=== PATIENT | male | born 1950 | race Caucasian/White ===

== ENCOUNTER 2016-06-19 16:16 | Emergency (ER) | payer OTHER ==
[~2016-06-19 16:16] MED LIST: ATORVASTATIN CA10 MG PO; BUSPIRONE HCL5 MG PO; CLONAZEPAM0.5 MG PO; CYCLOBENZAPRINE5 MG PO; LISINOPRIL10 MG PO; NITROSTAT0.4 MG SL; VICODIN EQUIVAL1 TAB PO; ZESTRIL2.5 MG PO
--- NOTE | 2016-06-19 17:26 | DIAGNOSTIC IMAGING REPORT ---
PROCEDURE: XR CHEST 1 VIEW INDICATION: CHEST PAIN TECHNIQUE: Portable AP view 04:51 p.m. COMPARISON: Chest 06/05/2016 FINDINGS: Lungs are clear. Heart and mediastinum are normal. Thorax is normal. IMPRESSION: 1. Negative chest.
--- NOTE | 2016-06-19 20:16 | ED ORDER SUMMARY ---
..... Patient: HOMA HEATH OrderSheet [facility] VisitID: [id number] [place] [address] 66y, M Registration Date/Time: 06/19/2016 ORDER SHEET Weight: 71.6 kg (stated) Allergies: No Known Drug Allergy GENERAL ORDERS: Urologist Md (Continuous) (Chest Pain) (16:46 06/19/2016 Alta R.N. verbal order read back to Marii POWELL) (16:49 Alta R.N.) CBC w Diff Urgent (16:47 06/19/2016 Alta R.N. verbal order read back to Marii POWELL) (16:50 Alta R.N.) (Cancelled: Duplicate Order17:01 Marii POWELL) CMP Urgent (16:47 06/19/2016 Alta R.N. verbal order read back to Marii POWELL) (16:50 Sesarelli R.N.) (Cancelled: Duplicate Order17:01 Marii POWELL) UA-Culture if indicated Urgent (16:47 06/19/2016 Alta R.N. verbal order read back to Marii POWELL) (Ack 17:02 NHouse ER Tech1) (17:47 SReitz R.N.) Oxygen (2 L/min) (NC) (16:47 06/19/2016 Alta R.N. verbal order read back to Marii POWELL) (16:49 Alta R.N.) Pulse oximeter (16:47 06/19/2016 Alta R.N. verbal order read back to Marii POWELL) (16:49 Alta R.N.) EKG - ER Stat (16:47 06/19/2016 Alta Moe.N. verbal order read back to Marii POWELL) (16:47 LNations ER Tech1) Old Records (16:47 06/19/2016 Alta Moe.N. verbal order read back to Marii POWELL) (17:02 NHouse ER Tech1) Chest 1V Urgent (16:47 06/19/2016 Alta R.N. verbal order read back to Marii POWELL) (Ack 17:02 NHouse ER Tech1) (17:03 NHouse ER Tech1) Cardiac Panel Stat (16:50 06/19/2016 Alta Self verbal order read back to Marii POWELL) (Ack 17:02 NHouse ER Tech1) (17:03 NHouse ER Tech1) TSH Urgent (17:17 06/19/2016 Marii POWELL) (17:29 NHouse ER Tech1) - (orthostatic BP/P) (19:02 06/19/2016 Marii POWELL) (19:29 Bryant R.N.) -- (Walk test after orthostatics.) (19:02 06/19/2016 Marii POWELL) (19:29 Bryant Moe.N.) MEDICATION ORDERS: IV FLUIDS: IV NS : initial bolus none -, then 125 mL/hr (NOW) (16:46 06/19/2016 Alta Self verbal order read back to Marii POWELL) (16:49 Alta R.N.) Toradol IV 30 mg (NOW) (17:01 06/19/2016 Marii POWELL) (Ack 17:05 Bryant R.N.) (17:11 Bryant R.N.) ORDER SHEET NOTES: [Electronically signed by Carline Hartley R.N. (21:00 06/19/2016)] [Electronically signed by Mohsen Friedman MD (22:18 06/20/2016)] [Electronically locked/signed by Carline Hartley R.N. (21:00 06/19/2016)]
--- NOTE | 2016-06-19 20:16 | ED NURSING NOTES ---
Clinical Report - Nurses [facility] [address] [place] [address] 06/19/2016 16:16 Patient: HOMA HEATH TRIAGE Triage time 16:22. Acuity: LEVEL 3. Chief Complaint: CHEST PAIN and (headache and dizziness). Alert. No acute distress. 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 He then started having chest pain 10/10. He also is complaining of left shoulder pain: Which he recently injured. He took a nitro and called EMS. His pain after nitro was 7/10.). SEPSIS SCREEN: Sepsis Screen. Negative (no infection suspected/documented). YENNY COMA SCORE: [place] Coma Scale: 15- eyes open spontaneously (4); best verbal response- oriented x 4 (5); best motor response- obeys commands (6). --16:36 Elba Rudd R.N. 16:22 06/19/16. BP: 136/80. HR: 60. RR: 18. O2 saturation: 96%. Temp: 98.6 F. Pain level now 7/10. --16:36 Elba Rudd R.N. Weight: 71.6 kg stated. Height/Length: 65 inches Per Patient. BMI: 26.3. --16:29 Elba Rudd R.N. Medications Lisinopril Oral 40 mg (pt states he has not taken any for x1 week). --16:26 Elba Rudd R.N. ClonazePAM Oral (Tablet 1 mg) 1 tablet, as needed. Vicodin Oral. --16:26 Elba Rudd R.N. Mirtazapine Oral 45 mg, at bedtime. --17:35 Elba Rudd R.N. Atorvastatin Calcium Oral 20 mg, daily. --17:35 Elba Rudd R.N. TraZODone HCl Oral 100 mg, at bedtime. --17:36 Elba Rudd R.N. Citalopram 0.5mg x1 tablet three time daily. --17:36 Elba Rudd R.N. TiZANidine HCl Oral (Tablet 2 mg) 1 tablet, 3x a day. --17:37 Elba Rudd R.N. Spironolactone Oral (Tablet 25 mg) 1 tablet, daily. --17:41 Elba Rudd R.N. Nitroglycerin Translingual, as needed. --17:41 Elba Rudd R.N. The following entry was struck and corrected by Elba Rudd R.N., 17:35 (06/19/16) Reason for correction - other(correction). <<STRICKEN ENTRY-- Lisinopril Oral. --16:26 Elba Rudd R.N. --END STRIKE>>. Allergies No Known Drug Allergy. --16:26 Elba Rudd R.N. History Arrived by EMS. Historian: patient. Unaccompanied. Primary physician ([facility] in [place]). This started today. 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 NS fluids: 50cc INTELLIGENCE CHIEF to ED.). See EMS report. Pre-hospital 12-lead EKG. Medications given- ASA (IV ASA 324mg. Pt. took x1 Nitro prior to EMS arrival.). PAST MEDICAL HX: Immunizations: up-to-date. SOCIAL HX: Never smoker. Alcohol use. (stopped drinking in 1983). History of drug use: marijuana. (history). No infectious disease exposure. ABUSE ASSESSMENT: No report of abuse. NUTRITIONAL RISK ASSESSMENT: The nutritional risk assessment revealed no deficiencies. FUNCTIONAL ASSESSMENT: Functional assessment: no impairments noted. LEARNING NEEDS ASSESSMENT: The learning needs assessment revealed no barriers. --16:36 Elba Rudd R.N. PROBLEMS: Chest Pain. Abrasion(s). Suicidal Ideation. Sinus bradycardia. Seizure. Dizziness. Hypokalemia. Fall. Hypertension. Depression. Diabetes Mellitus. Anxiety disorder. --16:26 Elba Rudd R.N. Hemiplegia. CVA - Cerebrovascular Accident. --16:28 Elba Rudd R.N. ADDITIONAL SURGERIES: Cerebral aneurysm. Cholecystectomy. --16:26 Elba Rudd R.N. Interventions ID band on patient. Transported via stretcher. --16:36 Elba Rudd R.N. 16:31 06/19/2016 Site #1 started prior to arrival by EMS via IV in the right hand with an 20g angiocath. --16:31 Elba Rudd R.N. PHYSICAL ASSESSMENT 16:23. To room via stretcher. GENERAL / NEURO / PSYCH: Alert. Appears in no acute distress. HEENT: Mucous membranes are pink. RESPIRATORY: Respirations not labored. CVS: Pulses within normal limits. Capillary refill less than 2 seconds. EXTREMITIES: No lower extremity edema. SKIN: Skin is warm and dry. Skin is non-tender. --16:36 Elba Rudd R.N. NURSING PROGRESS NOTES 16:24. Oxygen administered by nasal cannula at 2 liters. 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 Patient gowned. Head of bed elevated. Two patient identifiers checked. Call light placed in reach. Side rails up x 2. Bed placed in lowest position. Brakes of bed on. Patient ready for evaluation- chart flagged. --16:37 Elba Rudd R.N. EKG time: (1622). EKG was ordered, performed by a tech and shown to the ED physician. --16:37 Elba Rudd R.N. Patient ID band checked for patient name, birthdate and medical record number: patient confirmed. Blood samples drawn from the peripheral IV site by nurse per protocol ; labeled in presence of the patient and sent to lab: rainbow set. Initial blood discarded and additional blood sent to lab. Line flushed with 10 mL normal saline post blood draw. --16:37 Elba Rudd R.N. 16:24 06/19/2016 Started bag #1 500 mL IV Fluids IV NS (Saline); at 125 mL/hr over 4 hour(s) via site #1 via IV pump. Allergies verified and confirmed 5 rights. IV patency established. IV site checked: no pain, redness, or swelling. IV flushed thoroughly pre- and post-medication administration (field start by EMS). --16:49 Ryder Muse R.N. 17:11 06/19/2016 Toradol IVP 30 mg given over 2 minute(s) via site #1. Allergies verified and confirmed 5 rights. IV patency established. IV site checked: no pain, redness, or swelling. IV flushed thoroughly pre- and post-medication administration. --17:11 Elba Rudd R.N. 17:11 06/19/16. BP: 134/79. HR: 60. RR: 12. O2 saturation: 100%. Pain level now 12/18. --17:12 Elba Rudd R.N. 17:13 06/19/16. HR: 62 (regular and normal rate). --17:13 Elba Rudd R.N. Patient ID band checked for patient name, birthdate and medical record number: patient confirmed. Instructions provided to collect clean catch urine and patient verbalized understanding. Clean catch urine collected with return of yellow-colored clear urine; sample sent to lab for urinalysis. Specimen labeled in the presence of the patient. --17:47 Elba Rudd R.N. 17:47 06/19/2016 Toradol IVP Response: no adverse reaction pain is improving. --17:47 Elba Rudd R.N. 18:37 06/19/16. BP: 150/79. HR: 62 (regular and normal rate). RR: 14. O2 saturation: 99%. Pain level now: 10/18. --18:38 Elba Rudd R.N. 19:25 06/19/16. BP: 146/77 taken while lying. HR: 58. RR: 14. O2 saturation: 98%. --19:26 Elba Rudd R.N. 19:28 06/19/16. BP: 153/87. HR: 60. RR: 15. O2 saturation: 100%. Pain level now 09/18. --19:29 Elba Rudd R.N. 20:08 06/19/16. Care transferred and report received. --20:08 Carline Hartley R.N. Care transferred and report given (to Carline Ireland RN). --20:14 Elba Rudd R.N. late entry -20:05. ( Pt ambulated in [place] , mendy well. c/o slight dizziness, but denies sob or chest pain. asking for po food, ERMD notified, ok'e d pt given crackers and pudding). --20:56 Carline Hartley R.N. 20:20 06/19/2016 Site #1 removed upon discharge. Pressure dressing applied. --20:57 Carline Hartley R.N. 20:20 06/19/2016 IV Fluids IV NS Discontinued: bag #1 STOPPED upon discharge. Total amount infused: 375 mL. IV patency established. IV site checked: no pain, redness, or swelling. IV flushed thoroughly. --21:00 Carline Hartley R.N. DISPOSITION / DISCHARGE 20:30. Condition at departure: improved and stable. No learning barriers present. Discharge instructions provided and reviewed with the patient and spouse. Reviewed medication(s) (cont home meds). Patient and spouse verbalized understanding. Written instructions provided in Ghanaian. The patient was discharged home and accompanied by spouse. He left the Emergency Department in a wheelchair and via private vehicle. Spouse driving. --20:59 Carline Hartley R.N. 20:30 06/19/16. BP: 152/80. HR: 60. RR: 17. O2 saturation: 98%. Temp: deferred. Pain level now: 07/21. --20:59 Carline Hartley R.N. Locked/Released at 06/19/2016 21:01 by Carline Hartley R.N.
--- NOTE | 2016-06-19 20:16 | ED ORDER SUMMARY ---
..... 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 verbal order read back to Marii POWELL) (16:49 Alta R.N.) CBC w Diff Urgent (16:47 06/19/2016 Alta R.N. verbal order read back to Marii POWELL) (16:50 Alta R.N.) (Cancelled: Duplicate Order17:01 Marii POWELL) CMP Urgent (16:47 06/19/2016 Alta R.N. verbal order read back to Marii POWELL) (16:50 Sesarelli R.N.) (Cancelled: Duplicate Order17:01 Marii POWELL) UA-Culture if indicated Urgent (16:47 06/19/2016 Alta R.N. verbal order read back to Marii POWELL) (Ack 17:02 NHouse ER Tech1) (17:47 SReitz R.N.) Oxygen (2 L/min) (NC) (16:47 06/19/2016 Alta R.N. verbal order read back to Marii POWELL) (16:49 Alta R.N.) Pulse oximeter (16:47 06/19/2016 Alta R.N. verbal order read back to Marii POWELL) (16:49 Alta R.N.) EKG - ER Stat (16:47 06/19/2016 Alta Moe.N. verbal order read back to Marii POWELL) (16:47 LNations ER Tech1) Old Records (16:47 06/19/2016 Alta Moe.N. verbal order read back to Marii POWELL) (17:02 NHouse ER Tech1) Chest 1V Urgent (16:47 06/19/2016 Alta R.N. verbal order read back to Marii POWELL) (Ack 17:02 NHouse ER Tech1) (17:03 NHouse ER Tech1) Cardiac Panel Stat (16:50 06/19/2016 Alta Self verbal order read back to Marii POWELL) (Ack 17:02 NHouse ER Tech1) (17:03 NHouse ER Tech1) TSH Urgent (17:17 06/19/2016 Marii POWELL) (17:29 NHouse ER Tech1) - (orthostatic BP/P) (19:02 06/19/2016 Marii POWELL) (19:29 Bryant R.N.) -- (Walk test after orthostatics.) (19:02 06/19/2016 Marii POWELL) (19:29 Bryant Moe.N.) MEDICATION ORDERS: IV FLUIDS: IV NS : initial bolus none -, then 125 mL/hr (NOW) (16:46 06/19/2016 Alta Self verbal order read back to Marii POWELL) (16:49 Alta R.N.) Toradol IV 30 mg (NOW) (17:01 06/19/2016 Marii POWELL) (Ack 17:05 Bryant R.N.) (17:11 Bryant R.N.) ORDER SHEET NOTES: [Electronically signed by Carline Hartley R.N. (21:00 06/19/2016)] [Electronically signed by Mohsen Friedman MD (22:18 06/20/2016)] [Electronically locked/signed by Carline Hartley R.N. (21:00 06/19/2016)]
--- NOTE | 2016-06-19 20:16 | ED CLINICAL REPORT ---
Clinical Report - Physicians/Mid Levels [facility] [address] [place] [address] 06/19/2016 16:16 Patient: HOMA HEATH Time Seen: 16:23 Jun 19 2016. Arrived- By ambulance. Historian- patient and EMS personnel. CPT: ER phys charges level 5 plus (#[id number]). EKG interpretation (#[id number]). HISTORY OF PRESENT ILLNESS Chief Complaint: CHEST PAIN and DISCOMFORT. SHORTNESS OF BREATH, WEAKNESS and DIZZINESS. At its maximum, severity described as moderate. When seen in the E.D., severity described as mild. Modifying factors- worsened by movement. Relieved by rest and nitroglycerin (one, from patients own supply). This started today Came on today while bowling. and is still present but is better now. Onset during light activity. It is described as aching, sharp and "pain" and it is described as located in the left chest area and left shoulder. The patient has had difficulty breathing and nausea. No vomiting or diaphoresis. Similar symptoms previously: None. Recent medical care: Not recently seen/assessed. REVIEW OF SYSTEMS No fever, chills, cough, pedal edema or calf pain. No fainting episodes, headache, sore throat, abdominal pain or black stools. No difficulty with urination, skin rash, enlarged lymph nodes or joint pain. All systems otherwise negative, except as recorded above. PAST HISTORY Chest Pain. Abrasion(s). Suicidal Ideation. Sinus bradycardia. Seizure. Dizziness. Hypokalemia. Fall. Hypertension. Depression. Diabetes Mellitus. Anxiety disorder. --16:26 Elba Rudd R.N. Hemiplegia. CVA - Cerebrovascular Accident. ADDITIONAL SURGERIES: Cerebral aneurysm. 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 Cholecystectomy. No history of coronary artery disease, congestive heart failure, heart rhythm problems or pulmonary embolism. SOCIAL HISTORY Former smoker. History of drug use: marijuana. No alcohol use. ADDITIONAL NOTES The nursing notes have been reviewed. PHYSICAL EXAM Vital Signs: 06/19/2016 16:22 BP: 136/80. HR: 60. RR: 18. O2 saturation: 96%. Temp: 98.6 F. Appearance: Alert. No acute distress. Eyes: Pupils equal, round and reactive to light. Eyes normal inspection. ENT: Ears normal. Nose normal. Pharynx normal. Neck: Normal inspection. Neck supple. CVS: Normal heart rate and rhythm. Heart sounds normal. Pulses normal. No cardiac murmur. Respiratory: No respiratory distress. Chest pain reproducible with palpation of the chest wall and anterior and lateral ribs, with movement of the trunk and left arm and with deep breathing. Breath sounds normal. Abdomen: Soft and nontender. Back: Normal external inspection. Skin: Skin warm. Normal skin color. No rash. Extremities: Extremities exhibit normal ROM. No lower extremity edema. Neuro: Oriented X 3. No motor deficit. No sensory deficit. Reflexes normal. LABS, X-RAYS, AND EKG EKG: Normal sinus rhythm. Normal P waves. Normal KRISTINA. Normal QRS complex. Normal axis. J-point elevation in lead V1 and V2. No acute ST changes. Prior EKG unavailable. The study has been interpreted contemporaneously. The study has been independently viewed by me. The EKG appears to be a good tracing. Chest X-ray: Normal Chest X-Ray. Laboratory Tests: UA-Culture if indicated: (KRISTIN: 06/19/2016 17:45) ( MsgRcvd 06/19/2016 18:09) Final results Test Result Flag Units (Reference) URINE COLOR YELLOW URINE APPEARANCE CLEAR URINE GLUCOSE NEGATIVE (NEGATIVE) URINE BILIRUBIN NEGATIVE (NEGATIVE) URINE KETONE NEGATIVE (NEGATIVE) URINE SPECIFIC GRAVITY 1.025 (1.010-1.030) URINE PH 6.0 (5.0-8.0) URINE PROTEIN NEGATIVE (NEGATIVE) URINE UROBILINOGEN 0.2 EU/dL (0.2-1.0) URINE NITRITE NEGATIVE (NEGATIVE) URINE BLOOD NEGATIVE (NEGATIVE) URINE LEUK ESTERASE NEGATIVE (NEGATIVE) URINE RBC NONE SEEN rbc/hpf (0-1) URINE WBC RARE wbc/hpf (0-1) URINE EPITHELIAL CELLS RARE EPI/hpf (0-5) URINE BACTERIA NONE SEEN (NONE SEEN) URINE COMMENT CULT NOT INDICATED URINE CULTURES ARE SET-UP BASED ON THE FOLLOWING CRITERIA:POSITIVE NITRITEPOSITIVE LEUKOCYTE ESTERASEGREATER THAN 10 WHITE BLOOD CELLSMODERATE (2+) OR GREATER BACTERIA CBC w Diff: (KRISTIN: 06/19/2016 16:35) ( [facility] 06/19/2016 17:01) Final results Test Result Flag Units (Reference) WHITE BLOOD COUNT 6.5 K/uL (4.5-11.5) RED BLOOD COUNT 4.82 M/uL (4.50-5.90) HEMOGLOBIN 14.0 gm/dL (13.5-17.5) HEMATOCRIT 43.3 % (41.0-53.0) MEAN CELL VOLUME 90 fL (80-100) MEAN CORPUSCULAR HGB 29 pg (26-34) MEAN CORPUSCULAR HGB CONC 32 g/dL (31-37) RED CELL DISTRIBUTION WIDTH 13.6 % (11.6-14.8) PLATELET COUNT 166 K/uL (150-400) NEUTROPHIL % 79.6 H % (50-75) LYMPH % 11.3 L % (25-40) MONO % 7.5 % (3-14) EOSINOPHIL % 0.6 % (0-4) BASOPHIL % 1.0 % (0-2) TSH: (KRISTIN: 06/19/2016 16:35) ( [facility] [place] 06/19/2016 17:45) Final results Test Result Flag Units (Reference) THYROID STIMULATING HORMONE 0.291 L uIU/mL (0.30-3.74) CHEM 13 PANEL: (KRISTIN: 06/19/2016 16:35) ( [facility] 06/19/2016 17:12) Final results Test Result Flag Units (Reference) GLUCOSE 98 mg/dL (70-110) BUN 12 mg/dL (7-18) CREATININE 1.0 mg/dL (0.6-1.3) Estimated GFR >60 mL/min Estimated GFR- >60 mL/min Note: Persistent reduction over 3 months in eGFR<60 mL/min/1.73 m2 defines CKD. Patients with eGFR values>=60 mL/min/1.73 m2 may also have CKD if evidence ofpersistent proteinuria. Additional information may be foundat www.kidney.org. SODIUM 139 mmol/L (136-145) POTASSIUM 3.5 mmol/L (3.5-5.1) CHLORIDE 106 mmol/L (98-107) CARBON DIOXIDE 26 mmol/L (21-32) CALCIUM 8.0 L mg/dL (8.5-10.1) TOTAL PROTEIN 7.0 g/dL (6.4-8.2) ALBUMIN 4.0 g/dL (3.3-5.0) BILIRUBIN, TOTAL 0.5 mg/dL (0.0-1.0) ALKALINE PHOSPHATASE 53 U/L (46-116) AST (SGOT) 24 U/L (15-37) ALT (SGPT) 53 U/L (12-78) CPK 95 U/L (24-260) MAGNESIUM 2.1 mg/dL (1.8-2.4) TROPONIN I <0.05 ng/mL (0.00-1.5) TROPONIN REFERENCE RANGE:<0.1 NEGATIVE0.1-1.5 INDETERMINANT>1.5 POSITIVE . PROGRESS AND PROCEDURES Course of Care: 20:02 06/19/16. Pt not orthostatic Walks to the BR and back and has c/o of mild weakness but ok to go home. Will see his Doctor tomorrow. Patient/family counseled. Disposition: Discharged. Condition: stable. CLINICAL IMPRESSION Anterior Chest wall pain Weakness. INSTRUCTIONS No strenuous activity. Rest. Drink plenty of fluids. Warnings: Further evaluation is necessary. GENERAL WARNINGS: Return or contact your physician immediately if your condition worsens or changes unexpectedly, if not improving as expected, or if other problems arise. Your Current Medications: CONTINUE TAKING THE FOLLOWING MEDICATIONS: Atorvastatin Calcium Oral : 20 mg daily. Citalopram 0.5mg x1 tablet three time daily*. ClonazePAM Oral : Tablet 1 mg, 1 tablet, prn. Lisinopril Oral : 40 mg, pt states he has not taken any for x1 week. Mirtazapine Oral : 45 mg at bedtime. Nitroglycerin Translingual : prn. Spironolactone Oral : Tablet 25 mg, 1 tablet daily. TiZANidine HCl Oral : Tablet 2 mg, 1 tablet 3x a day. TraZODone HCl Oral : 100 mg at bedtime. Vicodin Oral. Understanding of the discharge instructions verbalized by patient and family. Follow-up with: Cristopher Gallardo MD, [facility], , [facility], [address] [facility], [place] [address] Follow up tomorrow. Call for the next available appointment. (Electronically signed by Mohsen Friedman MD 06/20/2016 22:18)
--- NOTE | 2016-06-19 20:16 | ED CLINICAL REPORT ---
Clinical Report - Physicians/Mid Levels [facility] [address] [place] [address] 06/19/2016 16:16 Patient: HOMA HEATH Time Seen: 16:23 Jun 19 2016. Arrived- By ambulance. Historian- patient and EMS personnel. CPT: ER phys charges level 5 plus (#[id number]). EKG interpretation (#[id number]). HISTORY OF PRESENT ILLNESS Chief Complaint: CHEST PAIN and DISCOMFORT. SHORTNESS OF BREATH, WEAKNESS and DIZZINESS. At its maximum, severity described as moderate. When seen in the E.D., severity described as mild. Modifying factors- worsened by movement. Relieved by rest and nitroglycerin (one, from patients own supply). This started today Came on today while bowling. and is still present but is better now. Onset during light activity. It is described as aching, sharp and "pain" and it is described as located in the left chest area and left shoulder. The patient has had difficulty breathing and nausea. No vomiting or diaphoresis. Similar symptoms previously: None. Recent medical care: Not recently seen/assessed. REVIEW OF SYSTEMS No fever, chills, cough, pedal edema or calf pain. No fainting episodes, headache, sore throat, abdominal pain or black stools. No difficulty with urination, skin rash, enlarged lymph nodes or joint pain. All systems otherwise negative, except as recorded above. PAST HISTORY Chest Pain. Abrasion(s). Suicidal Ideation. Sinus bradycardia. Seizure. Dizziness. Hypokalemia. Fall. Hypertension. Depression. Diabetes Mellitus. Anxiety disorder. --16:26 Elba Rudd R.N. Hemiplegia. CVA - Cerebrovascular Accident. ADDITIONAL SURGERIES: Cerebral aneurysm. 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 Cholecystectomy. No history of coronary artery disease, congestive heart failure, heart rhythm problems or pulmonary embolism. SOCIAL HISTORY Former smoker. History of drug use: marijuana. No alcohol use. ADDITIONAL NOTES The nursing notes have been reviewed. PHYSICAL EXAM Vital Signs: 06/19/2016 16:22 BP: 136/80. HR: 60. RR: 18. O2 saturation: 96%. Temp: 98.6 F. Appearance: Alert. No acute distress. Eyes: Pupils equal, round and reactive to light. Eyes normal inspection. ENT: Ears normal. Nose normal. Pharynx normal. Neck: Normal inspection. Neck supple. CVS: Normal heart rate and rhythm. Heart sounds normal. Pulses normal. No cardiac murmur. Respiratory: No respiratory distress. Chest pain reproducible with palpation of the chest wall and anterior and lateral ribs, with movement of the trunk and left arm and with deep breathing. Breath sounds normal. Abdomen: Soft and nontender. Back: Normal external inspection. Skin: Skin warm. Normal skin color. No rash. Extremities: Extremities exhibit normal ROM. No lower extremity edema. Neuro: Oriented X 3. No motor deficit. No sensory deficit. Reflexes normal. LABS, X-RAYS, AND EKG EKG: Normal sinus rhythm. Normal P waves. Normal KRISTINA. Normal QRS complex. Normal axis. J-point elevation in lead V1 and V2. No acute ST changes. Prior EKG unavailable. The study has been interpreted contemporaneously. The study has been independently viewed by me. The EKG appears to be a good tracing. Chest X-ray: Normal Chest X-Ray. Laboratory Tests: UA-Culture if indicated: (KRISTIN: 06/19/2016 17:45) ( MsgRcvd 06/19/2016 18:09) Final results Test Result Flag Units (Reference) URINE COLOR YELLOW URINE APPEARANCE CLEAR URINE GLUCOSE NEGATIVE (NEGATIVE) URINE BILIRUBIN NEGATIVE (NEGATIVE) URINE KETONE NEGATIVE (NEGATIVE) URINE SPECIFIC GRAVITY 1.025 (1.010-1.030) URINE PH 6.0 (5.0-8.0) URINE PROTEIN NEGATIVE (NEGATIVE) URINE UROBILINOGEN 0.2 EU/dL (0.2-1.0) URINE NITRITE NEGATIVE (NEGATIVE) URINE BLOOD NEGATIVE (NEGATIVE) URINE LEUK ESTERASE NEGATIVE (NEGATIVE) URINE RBC NONE SEEN rbc/hpf (0-1) URINE WBC RARE wbc/hpf (0-1) URINE EPITHELIAL CELLS RARE EPI/hpf (0-5) URINE BACTERIA NONE SEEN (NONE SEEN) URINE COMMENT CULT NOT INDICATED URINE CULTURES ARE SET-UP BASED ON THE FOLLOWING CRITERIA:POSITIVE NITRITEPOSITIVE LEUKOCYTE ESTERASEGREATER THAN 10 WHITE BLOOD CELLSMODERATE (2+) OR GREATER BACTERIA CBC w Diff: (KRISTIN: 06/19/2016 16:35) ( [facility] 06/19/2016 17:01) Final results Test Result Flag Units (Reference) WHITE BLOOD COUNT 6.5 K/uL (4.5-11.5) RED BLOOD COUNT 4.82 M/uL (4.50-5.90) HEMOGLOBIN 14.0 gm/dL (13.5-17.5) HEMATOCRIT 43.3 % (41.0-53.0) MEAN CELL VOLUME 90 fL (80-100) MEAN CORPUSCULAR HGB 29 pg (26-34) MEAN CORPUSCULAR HGB CONC 32 g/dL (31-37) RED CELL DISTRIBUTION WIDTH 13.6 % (11.6-14.8) PLATELET COUNT 166 K/uL (150-400) NEUTROPHIL % 79.6 H % (50-75) LYMPH % 11.3 L % (25-40) MONO % 7.5 % (3-14) EOSINOPHIL % 0.6 % (0-4) BASOPHIL % 1.0 % (0-2) TSH: (KRISTIN: 06/19/2016 16:35) ( [facility] 06/19/2016 17:45) Final results Test Result Flag Units (Reference) THYROID STIMULATING HORMONE 0.291 L uIU/mL (0.30-3.74) CHEM 13 PANEL: (KRISTIN: 06/19/2016 16:35) ( [facility] 06/19/2016 17:12) Final results Test Result Flag Units (Reference) GLUCOSE 98 mg/dL (70-110) BUN 12 mg/dL (7-18) CREATININE 1.0 mg/dL (0.6-1.3) Estimated GFR >60 mL/min Estimated GFR- >60 mL/min Note: Persistent reduction over 3 months in eGFR<60 mL/min/1.73 m2 defines CKD. Patients with eGFR values>=60 mL/min/1.73 m2 may also have CKD if evidence ofpersistent proteinuria. Additional information may be foundat [email or web address]. SODIUM 139 mmol/L (136-145) POTASSIUM 3.5 mmol/L (3.5-5.1) CHLORIDE 106 mmol/L (98-107) CARBON DIOXIDE 26 mmol/L (21-32) CALCIUM 8.0 L mg/dL (8.5-10.1) TOTAL PROTEIN 7.0 g/dL (6.4-8.2) ALBUMIN 4.0 g/dL (3.3-5.0) BILIRUBIN, TOTAL 0.5 mg/dL (0.0-1.0) ALKALINE PHOSPHATASE 53 U/L (46-116) AST (SGOT) 24 U/L (15-37) ALT (SGPT) 53 U/L (12-78) CPK 95 U/L (24-260) MAGNESIUM 2.1 mg/dL (1.8-2.4) TROPONIN I <0.05 ng/mL (0.00-1.5) TROPONIN REFERENCE RANGE:<0.1 NEGATIVE0.1-1.5 INDETERMINANT>1.5 POSITIVE . PROGRESS AND PROCEDURES Course of Care: 20:02 06/19/16. Pt not orthostatic Walks to the BR and back and has c/o of mild weakness but ok to go home. Will see his Doctor tomorrow. Patient/family counseled. Disposition: Discharged. Condition: stable. CLINICAL IMPRESSION Anterior Chest wall pain Weakness. INSTRUCTIONS No strenuous activity. Rest. Drink plenty of fluids. Warnings: Further evaluation is necessary. GENERAL WARNINGS: Return or contact your physician immediately if your condition worsens or changes unexpectedly, if not improving as expected, or if other problems arise. Your Current Medications: CONTINUE TAKING THE FOLLOWING MEDICATIONS: Atorvastatin Calcium Oral : 20 mg daily. Citalopram 0.5mg x1 tablet three time daily*. ClonazePAM Oral : Tablet 1 mg, 1 tablet, prn. Lisinopril Oral : 40 mg, pt states he has not taken any for x1 week. Mirtazapine Oral : 45 mg at bedtime. Nitroglycerin Translingual : prn. Spironolactone Oral : Tablet 25 mg, 1 tablet daily. TiZANidine HCl Oral : Tablet 2 mg, 1 tablet 3x a day. TraZODone HCl Oral : 100 mg at bedtime. Vicodin Oral. Understanding of the discharge instructions verbalized by patient and family. Follow-up with: Cristopher Gallardo MD, [facility], , [facility], [address] [facility] [address] [facility], [place] [address] Follow up tomorrow. Call for the next available appointment. (Electronically signed by Mohsen Friedman MD 06/20/2016 22:18)
--- NOTE | 2016-06-19 20:16 | ED NURSING NOTES ---
Clinical Report - Nurses [facility] [address] [place] [address] 06/19/2016 16:16 Patient: HOMA HEATH TRIAGE Triage time 16:22. Acuity: LEVEL 3. Chief Complaint: CHEST PAIN and (headache and dizziness). Alert. No acute distress. 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 He then started having chest pain 10/10. He also is complaining of left shoulder pain: Which he recently injured. He took a nitro and called EMS. His pain after nitro was 7/10.). SEPSIS SCREEN: Sepsis Screen. Negative (no infection suspected/documented). YENNY COMA SCORE: Jane Lew Coma Scale: 15- eyes open spontaneously (4); best verbal response- oriented x 4 (5); best motor response- obeys commands (6). --16:36 Elba Rudd R.N. 16:22 06/19/16. BP: 136/80. HR: 60. RR: 18. O2 saturation: 96%. Temp: 98.6 F. Pain level now 7/10. --16:36 Elba Rudd R.N. Weight: 71.6 kg stated. Height/Length: 65 inches Per Patient. BMI: 26.3. --16:29 Elba Rudd R.N. Medications Lisinopril Oral 40 mg (pt states he has not taken any for x1 week). --16:26 Elba Rudd R.N. ClonazePAM Oral (Tablet 1 mg) 1 tablet, as needed. Vicodin Oral. --16:26 Elba Rudd R.N. Mirtazapine Oral 45 mg, at bedtime. --17:35 Elba Rudd R.N. Atorvastatin Calcium Oral 20 mg, daily. --17:35 Elba Rudd R.N. TraZODone HCl Oral 100 mg, at bedtime. --17:36 Elba Rudd R.N. Citalopram 0.5mg x1 tablet three time daily. --17:36 Elba Rudd R.N. TiZANidine HCl Oral (Tablet 2 mg) 1 tablet, 3x a day. --17:37 Elba Rudd R.N. Spironolactone Oral (Tablet 25 mg) 1 tablet, daily. --17:41 Elba Rudd R.N. Nitroglycerin Translingual, as needed. --17:41 Elba Rudd R.N. The following entry was struck and corrected by Elba Rudd R.N., 17:35 (06/19/16) Reason for correction - other(correction). <<STRICKEN ENTRY-- Lisinopril Oral. --16:26 Elba Rudd R.N. --END STRIKE>>. Allergies No Known Drug Allergy. --16:26 Elba Rudd R.N. History Arrived by EMS. Historian: patient. Unaccompanied. Primary physician ([facility] in [place]). This started today. 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 NS fluids: 50cc VC++ DEVELOPER to ED.). See EMS report. Pre-hospital 12-lead EKG. Medications given- ASA (IV ASA 324mg. Pt. took x1 Nitro prior to EMS arrival.). PAST MEDICAL HX: Immunizations: up-to-date. SOCIAL HX: Never smoker. Alcohol use. (stopped drinking in 1983). History of drug use: marijuana. (history). No infectious disease exposure. ABUSE ASSESSMENT: No report of abuse. NUTRITIONAL RISK ASSESSMENT: The nutritional risk assessment revealed no deficiencies. FUNCTIONAL ASSESSMENT: Functional assessment: no impairments noted. LEARNING NEEDS ASSESSMENT: The learning needs assessment revealed no barriers. --16:36 Elba Rudd R.N. PROBLEMS: Chest Pain. Abrasion(s). Suicidal Ideation. Sinus bradycardia. Seizure. Dizziness. Hypokalemia. Fall. Hypertension. Depression. Diabetes Mellitus. Anxiety disorder. --16:26 Ebla Rudd R.N. Hemiplegia. CVA - Cerebrovascular Accident. --16:28 Elba Rudd R.N. ADDITIONAL SURGERIES: Cerebral aneurysm. Cholecystectomy. --16:26 Elba Rudd R.N. Interventions ID band on patient. Transported via stretcher. --16:36 Elba Rudd R.N. 16:31 06/19/2016 Site #1 started prior to arrival by EMS via IV in the right hand with an 20g angiocath. --16:31 Elba Rudd R.N. PHYSICAL ASSESSMENT 16:23. To room via stretcher. GENERAL / NEURO / PSYCH: Alert. Appears in no acute distress. HEENT: Mucous membranes are pink. RESPIRATORY: Respirations not labored. CVS: Pulses within normal limits. Capillary refill less than 2 seconds. EXTREMITIES: No lower extremity edema. SKIN: Skin is warm and dry. Skin is non-tender. --16:36 Elba Rudd R.N. NURSING PROGRESS NOTES 16:24. Oxygen administered by nasal cannula at 2 liters. manager monitoring, pulse oximeter and NIBP monitor placed on patient; athletic monitor- Lead II; monitor alarms on. Patient gowned. Head of bed elevated. Two patient identifiers checked. Call light placed in reach. Side rails up x 2. Bed placed in lowest position. Brakes of bed on. Patient ready for evaluation- chart flagged. --16:37 Elba Rudd R.N. EKG time: (1622). EKG was ordered, performed by a tech and shown to the ED physician. --16:37 Elba Rudd R.N. Patient ID band checked for patient name, birthdate and medical record number: patient confirmed. Blood samples drawn from the peripheral IV site by nurse per protocol ; labeled in presence of the patient and sent to lab: rainbow set. Initial blood discarded and additional blood sent to lab. Line flushed with 10 mL normal saline post blood draw. --16:37 Elba Rudd R.N. 16:24 06/19/2016 Started bag #1 500 mL IV Fluids IV NS (Saline); at 125 mL/hr over 4 hour(s) via site #1 via IV pump. Allergies verified and confirmed 5 rights. IV patency established. IV site checked: no pain, redness, or swelling. IV flushed thoroughly pre- and post-medication administration (field start by EMS). --16:49 Ryder Muse R.N. 17:11 06/19/2016 Toradol IVP 30 mg given over 2 minute(s) via site #1. Allergies verified and confirmed 5 rights. IV patency established. IV site checked: no pain, redness, or swelling. IV flushed thoroughly pre- and post-medication administration. --17:11 Elba Rudd R.N. 17:11 06/19/16. BP: 134/79. HR: 60. RR: 12. O2 saturation: 100%. Pain level now 12/18. --17:12 Elba Rudd R.N. 17:13 06/19/16. HR: 62 (regular and normal rate). --17:13 Elba Rudd R.N. Patient ID band checked for patient name, birthdate and medical record number: patient confirmed. Instructions provided to collect clean catch urine and patient verbalized understanding. Clean catch urine collected with return of yellow-colored clear urine; sample sent to lab for urinalysis. Specimen labeled in the presence of the patient. --17:47 Elba Rudd R.N. 17:47 06/19/2016 Toradol IVP Response: no adverse reaction pain is improving. --17:47 Elba Rudd R.N. 18:37 06/19/16. BP: 150/79. HR: 62 (regular and normal rate). RR: 14. O2 saturation: 99%. Pain level now: 10/18. --18:38 Elba Rudd R.N. 19:25 06/19/16. BP: 146/77 taken while lying. HR: 58. RR: 14. O2 saturation: 98%. --19:26 Elba Rudd R.N. 19:28 06/19/16. BP: 153/87. HR: 60. RR: 15. O2 saturation: 100%. Pain level now 09/18. --19:29 Elba Rudd R.N. 20:08 06/19/16. Care transferred and report received. --20:08 Carline Hartley R.N. Care transferred and report given (to Carline Ireland RN). --20:14 Elba Rudd R.N. late entry -20:05. ( Pt ambulated in [place] , [facility]. c/o slight dizziness, but denies sob or chest pain. asking for po food, ERMD notified, ok'e d pt given crackers and pudding). --20:56 Carline Hartley R.N. 20:20 06/19/2016 Site #1 removed upon discharge. Pressure dressing applied. --20:57 Carline Hartley R.N. 20:20 06/19/2016 IV Fluids IV NS Discontinued: bag #1 STOPPED upon discharge. Total amount infused: 375 mL. IV patency established. IV site checked: no pain, redness, or swelling. IV flushed thoroughly. --21:00 Carline Hartley R.N. DISPOSITION / DISCHARGE 20:30. Condition at departure: improved and stable. No learning barriers present. Discharge instructions provided and reviewed with the patient and spouse. Reviewed medication(s) (cont home meds). Patient and spouse verbalized understanding. Written instructions provided in [place]ian. The patient was discharged home and accompanied by spouse. He left the Emergency Department in a wheelchair and via private vehicle. Spouse driving. --20:59 Carline Hartley R.N. 20:30 06/19/16. BP: 152/80. HR: 60. RR: 17. O2 saturation: 98%. Temp: deferred. Pain level now: 07/21. --20:59 Carline Hartley R.N. Locked/Released at 06/19/2016 21:01 by Carline Hartley R.N.
--- NOTE | 2016-06-20 22:18 | ED DISCHARGE INSTRUCTIONS ---
Patient: HOMA HEATH General Instructions [facility] VisitID: [id number] [address] [place] [address] 66y, M Registration Date/Time: 06/19/2016 Anterior Chest wall pain Weakness. INSTRUCTIONS No strenuous activity. Rest. Drink plenty of fluids. Warnings: Further evaluation is necessary. GENERAL WARNINGS: Return or contact your physician immediately if your condition worsens or changes unexpectedly, if not improving as expected, or if other problems arise. Your Current Medications: CONTINUE TAKING THE FOLLOWING MEDICATIONS: Atorvastatin Calcium Oral : 20 mg daily. Citalopram 0.5mg x1 tablet three time daily*. ClonazePAM Oral : Tablet 1 mg, 1 tablet, prn. Lisinopril Oral : 40 mg, pt states he has not taken any for x1 week. Mirtazapine Oral : 45 mg at bedtime. Nitroglycerin Translingual : prn. Spironolactone Oral : Tablet 25 mg, 1 tablet daily. TiZANidine HCl Oral : Tablet 2 mg, 1 tablet 3x a day. TraZODone HCl Oral : 100 mg at bedtime. Vicodin Oral. Understanding of the discharge instructions verbalized by patient and family. Follow-up with: Cristopher Gallardo MD, Family Practice, , [facility], [address] [place] [address] Follow up tomorrow. Call for the next available appointment. No strenuous activity. Rest. (Electronically signed by Mohsen Friedman MD 06/20/2016 22:18)
--- NOTE | 2016-06-20 22:18 | ED MED RECONCILIATION SUMMARY ---
Patient: HOMA HEATH Medication Reconciliation Report [facility] VisitID: [id number] [address] [place] [address] 66y, M Registration Date/Time: 06/19/2016 Weight: 71.6 kg Height/Length: 65 in. BMI: 26.3 ALLERGIES: No Known Drug Allergy The patient's Home Medications are listed below: CONTINUE TAKING THE FOLLOWING MEDICATIONS: Atorvastatin Calcium Oral 20 mg, daily Citalopram 0.5mg x1 tablet three time daily ClonazePAM Oral (1 mg) 1 tablet Lisinopril Oral 40 mg, pt states he has not taken any for x1 week Mirtazapine Oral 45 mg, at bedtime Nitroglycerin Translingual Spironolactone Oral (25 mg) 1 tablet, daily TiZANidine HCl Oral (2 mg) 1 tablet, 3x a day TraZODone HCl Oral 100 mg, at bedtime Vicodin Oral The source(s) of the original Home Medication information: Not obtained. The following Medications were given to the patient in the Emergency Department: IV NS IV Fluids bolus 0, then 125 mL/hr, administered: 06/19/2016 4:24:00 PM Toradol [IVP] IVP 30 mg, administered: 06/19/2016 5:11:00 PM The following Medications were prescribed to the patient: None.
--- NOTE | 2016-06-20 22:18 | ED DISCHARGE INSTRUCTIONS ---
Patient: HOMA HEATH General Instructions [facility] VisitID: [id number] [address] [place] [address] 66y, M Registration Date/Time: 06/19/2016 Anterior Chest wall pain Weakness. INSTRUCTIONS No strenuous activity. Rest. Drink plenty of fluids. Warnings: Further evaluation is necessary. GENERAL WARNINGS: Return or contact your physician immediately if your condition worsens or changes unexpectedly, if not improving as expected, or if other problems arise. Your Current Medications: CONTINUE TAKING THE FOLLOWING MEDICATIONS: Atorvastatin Calcium Oral : 20 mg daily. Citalopram 0.5mg x1 tablet three time daily*. ClonazePAM Oral : Tablet 1 mg, 1 tablet, prn. Lisinopril Oral : 40 mg, pt states he has not taken any for x1 week. Mirtazapine Oral : 45 mg at bedtime. Nitroglycerin Translingual : prn. Spironolactone Oral : Tablet 25 mg, 1 tablet daily. TiZANidine HCl Oral : Tablet 2 mg, 1 tablet 3x a day. TraZODone HCl Oral : 100 mg at bedtime. Vicodin Oral. Understanding of the discharge instructions verbalized by patient and family. Follow-up with: Cristopher Gallardo MD, Family Practice, , [facility], [address] [place] [address] Follow up tomorrow. Call for the next available appointment. No strenuous activity. Rest. (Electronically signed by Mohsen Friedman MD 06/20/2016 22:18)
--- NOTE | 2016-06-20 22:18 | ED MAR SUMMARY ---
..... Medication Administration Record [facility] [address] [place] [address] Patient: HOMA HEATH Visit ID: [id number] 66y, M Weight: 71.6 kg Height/Length: 65 in BMI: 26.3 ALLERGIES: No Known Drug Allergy Start 16:24 06/19/2016 Ryder Muse RYaon, Stop 20:20 06/19/2016 NaeemCarline RYuryN. Medication Administered: IV NS (SALINE), Dose: IV Fluids over 4 hour(s), Rate: 125 mL/hr, Dispensed: 500 mL bag, Site: #1. Medication Ordered: IV NS : initial bolus none -, then 125 mL/hr (NOW). Given 17:11 06/19/2016 Elba Rudd R.N. Medication Administered: TORADOL [IVP], Dose: 30 mg IVP over 2 minute(s), Site: #1 right hand. Medication Ordered: Toradol IV 30 mg (NOW).
--- NOTE | 2016-06-20 22:18 | ED MAR SUMMARY ---
..... Medication Administration Record [facility] [address] [place] [address] Patient: HOMA HEATH Visit ID: [id number] 66y, M Weight: 71.6 kg Height/Length: 65 in BMI: 26.3 ALLERGIES: No Known Drug Allergy Start 16:24 06/19/2016 Ryder Muse RYoan, Stop 20:20 06/19/2016 NaeemCarline RYuryN. Medication Administered: IV NS (SALINE), Dose: IV Fluids over 4 hour(s), Rate: 125 mL/hr, Dispensed: 500 mL bag, Site: #1. Medication Ordered: IV NS : initial bolus none -, then 125 mL/hr (NOW). Given 17:11 06/19/2016 Elba Rudd R.N. Medication Administered: TORADOL [IVP], Dose: 30 mg IVP over 2 minute(s), Site: #1 right hand. Medication Ordered: Toradol IV 30 mg (NOW).
--- NOTE | 2016-06-20 22:18 | ED MED RECONCILIATION SUMMARY ---
Patient: HOMA HEATH Medication Reconciliation Report [facility] VisitID: [id number] [address] [place] [address] 66y, M Registration Date/Time: 06/19/2016 Weight: 71.6 kg Height/Length: 65 in. BMI: 26.3 ALLERGIES: No Known Drug Allergy The patient's Home Medications are listed below: CONTINUE TAKING THE FOLLOWING MEDICATIONS: Atorvastatin Calcium Oral 20 mg, daily Citalopram 0.5mg x1 tablet three time daily ClonazePAM Oral (1 mg) 1 tablet Lisinopril Oral 40 mg, pt states he has not taken any for x1 week Mirtazapine Oral 45 mg, at bedtime Nitroglycerin Translingual Spironolactone Oral (25 mg) 1 tablet, daily TiZANidine HCl Oral (2 mg) 1 tablet, 3x a day TraZODone HCl Oral 100 mg, at bedtime Vicodin Oral The source(s) of the original Home Medication information: Not obtained. The following Medications were given to the patient in the Emergency Department: IV NS IV Fluids bolus 0, then 125 mL/hr, administered: 06/19/2016 4:24:00 PM Toradol [IVP] IVP 30 mg, administered: 06/19/2016 5:11:00 PM The following Medications were prescribed to the patient: None.
== END 2016-06-19 20:30 | disposition home or self-care (01) ==
LOC: ED SRH 16:16
DX: R07.89 Other chest pain (principal); R53.1 Weakness; I10 Essential (primary) hypertension; E11.9 Type 2 diabetes mellitus without complications; Z79.899 Other long term (current) drug therapy; Z87.891 Personal history of nicotine dependence
CPT/HCPCS: 90004; 90100; 90616; 92610; 92720; 93140; 95059